=== PATIENT | male | born 1940 | race Caucasian/White ===

== ENCOUNTER 2018-09-12 16:00 | Inpatient (IN) | payer MEDICARE ==
[2018-09-12] MEDS ORDERED: NALOXONE 0.4 MG/ML 1 ML VIAL IV PRN (16:03)
[2018-09-12] MEDS ORDERED: TEMAZEPAM 15 MG CAP PO PRN (16:03)
[2018-09-12] MEDS ORDERED: ALPRAZolam 0.25 MG TAB PO PRN (16:03)
[2018-09-12] MEDS ORDERED: SODIUM CHLORIDE 0.9% 1,000 ML IV SCH (16:15)
[2018-09-12 19:17] VITALS: RESP 18
[2018-09-12 19:18] VITALS: BMI 25.8
[2018-09-12] MEDS ORDERED: FLUTICASONE 50MCG/SPRAY NASAL 16GM EA NOSTRIL PRN (19:58)
[2018-09-12] MEDS ORDERED: KETOROLAC 30 MG/ML 1 ML VIAL IVP PRN (19:59)
[2018-09-12] MEDS: HYDROcodone/APAP 5-325MG 1 EACH TAB PO PRN (20:00)
[2018-09-12 20:08] LABS: Basophils # (A) 0.1 k/uL (0-0.2); Basophils % (A) 1 %; Eosinophils # (A) 0.1 k/uL (0-0.7); Eosinophils % (A) 1 %; HCT 48.2 % (39.0-53.0); HGB 15.3 gm/dL (13.0-17.5); Lymphocytes # (A) 1.3 k/uL (1.0-4.8); Lymphocytes % (A) 18 %; MCH 30.4 pg (25.0-35.0); MCHC 31.6 g/dL (31.0-37.0); MCV 96.3 fL (80.0-100.0); Mean Platelet Volume 6.5; Monocytes # (A) 0.5 k/uL (0-1.0); Monocytes % (A) 7 %; Neutrophils # (A) 5.3 k/uL (1.3-7.7); Neutrophils % (A) 71 %; Platelet Count 265 k/uL (150-450); RBC 5.01 m/uL (4.30-5.90); RDW 13.1 % (11.5-15.5); WBC 7.5 k/uL (3.8-10.6)
[2018-09-12 20:19] LABS: Albumin 4.3 g/dL (3.5-5.0); Potassium 4.1 mmol/L (3.5-5.1); Total Bilirubin 0.6 mg/dL (0.2-1.3); Total Protein 6.8 g/dL (6.3-8.2)
[2018-09-12] MEDS: IOPAMIDOL-300 CONTRAST 30 ML VIAL (ORAL USE) PO PRN ×2 (20:25→21:32)
[2018-09-12] MEDS: methylPREDNISolone SOD SUCCI 125 MG/2 ML VIAL IV SCH (20:57)
[2018-09-12] MEDS ORDERED: ATORVASTATIN 20 MG TAB PO SCH (21:00)
[2018-09-12] MEDS: HYDROmorphone 0.5 MG/0.5 ML SYRINGE IVP PRN (21:01)
[2018-09-12 21:06] LABS: Glucose,Whole Blood 86 mg/dL (75-99)
--- NOTE | 2018-09-12 22:15 | HP ---
HISTORY AND PHYSICAL CHIEF COMPLAINT: Back pain. HISTORY OF PRESENT ILLNESS: This 77-year-old gentleman with a past medical history of Parkinson's, history of Kramer's esophagus, anxiety, panic disorder, being followed by Dr. Oreilly in the outpatient setting was complaining of back pain. Patient apparently had back pain about 2 years ago which improved with conservative line of management. MRA done at that time did not show any acute abnormality, but currently the patient having 2 weeks back pain which is felt in the back and radiates to the front and with muscle spasms and weakness. The also reported the patient is dragging himself. The patient was given outpatient pain medication because of lack of improvement. Dr. Oreilly performed a MRI at the [facility] which showed a pathological compression fracture of the L2 vertebral body with up to 50% loss and some retropulsion of the posterior vertebral body by 6.5 mm resulting in severe canal stenosis on the right. There is also an abnormal signal intensity noted within the vertebral body and suspicious of metastatic disease according to the MRI scan. Other lesions around T1 and T2 were also suspected. Multilevel DJD was also noted with apparent lymphadenopathy also noted the possible lymphoma is also considered and Dr. Oreilly discussed the case at length with me over the phone and the patient directly transferred to [facility] for further evaluation and treatment. There is no history of any fever, rigors or chills. No history of headache, loss of consciousness, seizures. No history of significant weight loss either. PAST MEDICAL HISTORY: 1. History of Parkinson's. 2. History of Kramer's esophagus. 3. Anxiety. 4. Panic disorder. 5. Nicotine dependence. MEDICATIONS: 1. Prednisone taper. 2. Lamictal 100 mg p.o. daily. 3. Klonopin 0.5 mg t.i.d. 4. Simvastatin 40 mg q.h.s. 5. Omeprazole 20 mg p.o. daily. 6. Namenda 10 mg p.o. b.i.d. 7. Mobic 7.5 mg daily p.r.n. 8. Flonase 2 sprays daily p.r.n. 9. Lexapro 40 mg. 10.Aricept 10 mg p.o. daily. 11.Carbidopa levodopa. 12.Sinemet ER 1 tablet p.o. t.i.d. ALLERGIES: None. FAMILY HISTORY: History of cancer in the family. SOCIAL HISTORY: Previous history of smoking, no history of current smoking or alcohol intake. REVIEW OF SYSTEMS: ENT: Diminished vision. Diminished hearing. CARDIOVASCULAR: No angina or palpitations. RESPIRATIONS: No cough or hemoptysis. GI no nausea or vomiting. no dysuria or hematuria. NERVOUS SYSTEM: As mentioned earlier. ALLERGY/IMMUNOLOGY: No asthma or hayfever. MUSCULOSKELETAL as mentioned earlier. HEMATOLOGY/ONCOLOGY: No history of anemia. ENDOCRINE: ENDOCRINE: No history of diabetes or hypothyroidism. CONSTITUTIONAL: As mentioned earlier. DERMATOLOGY: Negative. RHEUMATOLOGY negative. PSYCHIATRY as mentioned earlier. PHYSICAL EXAM: Patient is alert and oriented times three. Pulse 71, blood pressure 161/89, respiration 18, temperature 97.5, pulse ox 94% on room air. HEENT: Conjunctivae normal. Oral mucosa moist. NECK is no jugular venous distention. No carotid bruit. No lymph node enlargement. Cardiovascular system: S1, S2 muffled. No S3, no S4. RESPIRATORY: Breath sounds diminished in the bases. No rhonchi. No crackles. ABDOMEN: Soft, obese, nontender. No mass palpable. LEGS: No edema. No swelling. NERVOUS SYSTEM: Higher functions as mentioned earlier. Otherwise moves all 4 limbs. Tone is increased. Diffuse tremors suggestive of Parkinsonian tremors also present. Otherwise, some weakness and wasting of the both lower limbs also present. The leg movements are painful. Straight leg raise test is positive. Turning in the bed is painful for the patient with radiating pain over both the front and back of the leg. Gait cannot be tested. LYMPHATICS: No lymph nodes palpable in the neck, axillae or groin. JOINTS: No active deforming arthropathy otherwise as mentioned earlier. LABS: Pending at this time. MRI personally reviewed by me as mentioned earlier. ASSESSMENT: 1. Severe low back pain and L2 compression fractures with possible , rule out metastatic disease, possible degenerative joint disease. 2. Thoracic vertebral lesions, rule out metastatic lesions. 3. Retroperitoneal lymphadenopathy, rule out lymphoma. 4. Parkinson's. 5. Gait dysfunction because of severe pain and failure of outpatient treatment. 6. History of Kramer's esophagus. 7. Appendectomy. 8. Anxiety panic disorder. 9. Remote history of nicotine dependence. 10.FULL CODE. RECOMMENDATIONS AND DISCUSSION: In this 77-year-old gentleman who presented with multiple complex medical issues, at this time, I recommend to continue current medications. Exact etiology of the back pain is unknown at this time. I recommend symptomatic treatment with IV pain medications. I would also recommend a bone scan and CT scan of the chest, abdomen and pelvis also to evaluate for any possible primary foci of metastasis. Basic labs will be ordered and orthopedic surgeon, Dr. Deng and as well as Dr. Wu from Oncology also will be consulted. The overall prognosis extremely guarded. DVT prophylaxis. Incentive spirometry. Discussed with the patient's family at length. Understands and agrees. Further recommendations to follow. A copy of dictation being forwarded to Dr. Oreilly who is the primary physician. [id number] / IJN: [id number] / TANNA
--- NOTE | 2018-09-12 22:16 | XR ---
EXAMINATION: XR chest 1V portable DATE AND TIME: 09/12/2018 7:42 PM CLINICAL INDICATION: PHH; copd TECHNIQUE: AP upright portable COMPARISON: None FINDINGS: The pulmonary vasculature is mildly silhouetted by a fine reticular pattern of increased attenuation. This is a subtle finding but could correlate with a clinical diagnosis of mildly elevated left heart pressures. Moderately enlarged cardiac silhouette noted. The pleural spaces are negative. No acute skeletal or soft tissue findings. IMPRESSION: No definite acute radiographic process.
[2018-09-12] MEDS: INSULIN ASPART (NovoLOG) 100 UNIT/ML VIAL SQ SCH (22:26)
[2018-09-12] MEDS: clonazePAM 0.5 MG TAB PO SCH (22:39)
[2018-09-12] MEDS: MEMANTINE 10 MG TAB PO SCH (22:39)
[2018-09-12] MEDS: CARBIDOPA-LEVODOPA ER 50-200MG 1 EACH TABLET.ER PO SCH (22:39)
[2018-09-12] MEDS: HEPARIN SODIUM,PORCINE 5,000 UNIT/ML 1 ML VIAL SQ SCH (22:41)
[2018-09-13] LABS: Appearance,Urine Clear (Clear); Bilirubin,Urine Negative (Negative); Blood,Urine Negative (Negative); Color,Urine Light Yellow; Glucose,Urine (UA) Negative (Negative); Ketones,Urine Negative (Negative); Leukocyte Esterase,Urine Negative (Negative); Nitrite,Urine Negative (Negative); Protein,Urine Negative (Negative); Specific Gravity,Urine 1.009 (1.001-1.035); Urobilinogen,Urine <2.0 mg/dL (<2.0)
[2018-09-13] MEDS: methylPREDNISolone SOD SUCCI 125 MG/2 ML VIAL IV SCH ×3 (00:28→13:50)
[2018-09-13] MEDS: HYDROcodone/APAP 5-325MG 1 EACH TAB PO PRN (06:02)
[2018-09-13 06:11] VITALS: BP 123/77; PULSE 68; TEMP 97.4
[2018-09-13 07:00] LABS: Glucose,Whole Blood 131 mg/dL (75-99)
[2018-09-13] MEDS ORDERED: PANTOPRAZOLE 40 MG TABLET PO SCH (07:30)
[2018-09-13] MEDS: INSULIN ASPART (NovoLOG) 100 UNIT/ML VIAL SQ SCH ×2 (08:03→13:55)
[2018-09-13] MEDS: HEPARIN SODIUM,PORCINE 5,000 UNIT/ML 1 ML VIAL SQ SCH (08:04)
[2018-09-13] MEDS: clonazePAM 0.5 MG TAB PO SCH (08:05)
[2018-09-13] MEDS: CARBIDOPA-LEVODOPA ER 50-200MG 1 EACH TABLET.ER PO SCH (08:05)
[2018-09-13] MEDS: MEMANTINE 10 MG TAB PO SCH (08:05)
--- NOTE | 2018-09-13 08:09 | CT ---
EXAMINATION TYPE: CT brain wo con DATE OF EXAM: 09/12/2018 COMPARISON: 02/18/2015 HISTORY: mets CT DLP: [address] of the brain was performed. The ventricles, basal cisterns and sulci overlying the cerebral convexities demonstrate mild enlargem ent. There is no evidence for intracranial hemorrhage or sulcal effacement. There is decreased attenuation about the periventricular white matter and deep white matter of both c erebral hemispheres, compatible with chronic small vessel ischemia. Differential diagnosis does inclu de demyelination. No mass effects are seen.No midline shift. Osseous calvarium is intact. If symptoms persist consider MRI. IMPRESSION: 1. Age related atrophic and chronic small vessel ischemic change without acute intracranial process s een at this time.
--- NOTE | 2018-09-13 08:28 | CT ---
EXAMINATION TYPE: CT ChestAbdPelvis wo con DATE OF EXAM: 09/12/2018 COMPARISON: None HISTORY: mets, c/o back pain CT DLP: 858mGycm Unenhanced CT of the Chest, Abdomen and Pelvis Unenhanced CT of the chest ,abdomen and pelvis is performed. The lack of intravenous contrast limits evaluation of the solid and hollow viscera. Oral contrast: Yes CT Chest: LUNGS: Innumerable small pulmonary nodules are seen within the mid and upper lung zones measuring up to 6 or 7 mm. No pulmonary mass is visible. Mild left basilar atelectasis. No pleural effusion identi fied. MEDIASTINUM: Thoracic aorta is of normal caliber. The heart is not enlarged. No evidence for media stinal mass or adenopathy. HILAR STRUCTURES: No evidence for mass. No hilar adenopathy is appreciated. OTHER: No significant abnormality. CONTRAST CT ABDOMEN AND PELVIS: LIVER/GB: No calcified gallstones. No space occupying hepatic lesion. Biliary tree is of normal ca liber. PANCREAS: No inflammation. No distinct mass. SPLEEN: No splenic enlargement. No lesion seen. ADRENALS: No nodule. No thickening. KIDNEYS/BLADDER: No hydronephrosis. No nephrolithiasis. No distinct solid renal mass. 2.4 cm right renal cystic lesion. BOWEL: Normal appendix. Normal bowel caliber. No inflammation. GENITAL ORGANS: No gross abnormality. LYMPH NODES: No greater than 1cm abdominal or pelvic lymph nodes are appreciated. AORTA: No significant abnormality. OSSEOUS STRUCTURES: There is lytic lesion involving the mid body of L2 with bony retropulsion noted m easuring 9.6 mm and resultant severe central stenosis. Additional lesions are noted at the L1 level w hich is somewhat blastic in appearance as well as the superior endplate of T12 right L3 transverse pr ocess lesion noted. Small blastic lesion noted left S1 segment early lesion mid sacrum on the right i s difficult to exclude OTHER: No significant additional abnormality is seen. IMPRESSION: 1. Osseous metastases noted as discussed above greatest at L2 where there is bony retropulsion of 9.6 mm and results in severe central stenosis. 2. Innumerable smaller nodules mid and upper lung zones bilaterally may reflect metastatic nodules. A [place] critical message alert has been initiated for Lilly Damon MD via the [employer] [facility] on 09/13/2018 8:25 AM. This message alert has been sent to Lilly Damon MD via the preferences provided by the clinician for the receipt of Radiology Critical Findings. Message ID [id number].
[2018-09-13 08:58] LABS: Basophils % (A) 0 %; Eosinophils % (A) 0 %; HCT 48.8 % (39.0-53.0); HGB 15.8 gm/dL (13.0-17.5); Lymphocytes # (A) 0.8 k/uL (1.0-4.8); Lymphocytes % (A) 12 %; MCH 31.3 pg (25.0-35.0); MCHC 32.5 g/dL (31.0-37.0); MCV 96.3 fL (80.0-100.0); Mean Platelet Volume 7.2; Monocytes # (A) 0.1 k/uL (0-1.0); Monocytes % (A) 1 %; Neutrophils # (A) 5.4 k/uL (1.3-7.7); Neutrophils % (A) 86 %; Platelet Count 258 k/uL (150-450); RBC 5.07 m/uL (4.30-5.90); RDW 14.1 % (11.5-15.5); WBC 6.3 k/uL (3.8-10.6)
[2018-09-13] MEDS ORDERED: lamoTRIgine 100 MG TAB PO SCH (09:00)
[2018-09-13] MEDS ORDERED: DONEPEZIL 10 MG TAB PO SCH (09:00)
[2018-09-13] MEDS ORDERED: NON-FORMULARY DRUG (Omeprazole [Omeprazole] 20 MG) PO SCH (09:00)
[2018-09-13] MEDS ORDERED: ESCITALOPRAM 20 MG TAB PO SCH (09:00)
[2018-09-13 09:09] LABS: Calcium 9.3 mg/dL (8.4-10.2); Potassium 4.6 mmol/L (3.5-5.1)
--- NOTE | 2018-09-13 10:17 | P.CONS ---
History of Present Illness - Reason for Consult Consult date: 09/13/18 bone lesions, lung nodules Requesting physician: Lilly Damon - Chief Complaint back pain, leg numbness - History of Present Illness Mr. Robles is a very pleasant 77-year-old male who in the last 2 months has had increasing back pain, this is associated with numbness in the legs, he has "stumbled" a few times per his , no falls, incontinence of bowel or bladder. Over the last 2 weeks ago the pain is become more intense, to the point he can't move, it wraps around his hips, sometimes it will be more intense on one side than the other. Patient recently had an MRI (discs are available in patient's chart). This was positive for multiple bony lesions in the lumbar spine area. Patient was contacted by [facility] and told to come to the emergency department. On admission Attending ordered CT CAP, looking for primary, pulmonary nodules bilaterally were identified, there was a right renal cystic lesion as well as, otherwise no abnormalities. Patient's CBC and CMP were unremarkable other than an absolute lymphocyte count slightly low at 0.8 and a slightly elevated alk phos of 157. Pt denied unintnetional weight loss, shortness of breath, cough, other pain. He has no personal history of cancer, he has a remote history of smoking greater than 40 years ago. PSA checked in the past, last one was about 5 years ago. Review of Systems 14 point review of systems is as stated in HPI Past Medical History Past Medical History: Neurologic Disorder Additional Past Medical History / Comment(s): Parkinsons, Barretts Esophagus, beginning of dementia per , using walker lately per History of Any Multi-Drug Resistant Organisms: None Reported Past Surgical History: Appendectomy Past Anesthesia/Blood Transfusion Reactions: No Reported Reaction Past Psychological History: Anxiety, Panic Disorder Smoking Status: Former smoker Past Alcohol Use History: None Reported Past Drug Use History: None Reported - Past Family History Father Family Medical History: Cancer Medications and Allergies Home Medications Medication Instructions Recorded Confirmed Type Carbidopa-Levodopa ER 50-200Mg 1 tab PO TID 09/12/18 09/12/18 History [Sinemet ER 50-200] Donepezil [Aricept] 10 mg PO DAILY 09/12/18 09/12/18 History Escitalopram [Lexapro] 40 mg PO DAILY 09/12/18 09/12/18 History Fluticasone Nasal [place]man [Flonase 2 spr EA NOSTRIL DAILY PRN 09/12/18 09/12/18 History Nasal [place]man] Meloxicam [Mobic] 7.5 mg PO DAILY PRN 09/12/18 09/12/18 History Memantine [Namenda] 10 mg PO BID 09/12/18 09/12/18 History Omeprazole 20 mg PO DAILY 09/12/18 09/12/18 History Simvastatin 40 mg PO HS 09/12/18 09/12/18 History clonazePAM [KlonoPIN] 0.5 mg PO TID 09/12/18 09/12/18 History lamoTRIgine [LaMICtal] 100 mg PO DAILY 09/12/18 09/12/18 History predniSONE See Taper PO DAILY 09/12/18 09/12/18 History Allergies Allergy/AdvReac Type Severity Reaction Status Date / Time No Known Allergies Allergy Verified 09/12/18 19:48 Physical Exam Vitals: Vital Signs Temp Pulse Resp BP Pulse Ox 09/13/18 06:10 97.4 F L 68 18 123/77 93 L 09/12/18 19:16 97.5 F L 71 18 161/89 95 Intake and Output 09/12/18 09/13/18 09/13/18 22:59 06:59 14:59 Intake Total 40 160 Output Total 350 Balance -310 160 Intake: Intake, IV Titration 40 160 Amount Sodium Chloride 0.9% 1, 40 160 000 ml @ 20 mls/hr IV . Q24H [facility] Rx#:[id number] Output: Urine 350 Other: Voiding Method Urinal Weight 78.5 kg - Constitutional General appearance: average body habitus, cooperative, no acute distress - EENT Eyes: anicteric sclerae, EOMI, normal appearance ENT: hearing grossly normal, normal oropharynx - Neck Neck: no lymphadenopathy - Respiratory Respiratory: bilateral: CTA - Cardiovascular Rhythm: regular Heart sounds: normal: S1, S2 Abnormal Heart Sounds: no systolic murmur, no diastolic murmur, no rub, no S3 Gallop, no S4 Gallop, no click, no other leg Peripheral Edema: bilateral: None - Gastrointestinal General gastrointestinal: no absent bowel sounds, no decreased bowel sounds, distended, no hepatomegaly, no hyperactive bowel sounds, normal bowel sounds, no organomegaly, no rigid, no scaphoid, soft, no splenomegaly, no tenderness, no umbilical hernia, no ventral hernia - Neurologic Neurologic: CNII-XII intact - Musculoskeletal Bilateral lower extremity strength is maintained, patient does have some difficulty discriminating soft touch on the bilateral thighs and in the groin area - Psychiatric repeats questions, anxiety with regards to workup and differential diagnosis Psychiatric: A&O x's 3, intact judgment & insight Results CBC & Chem 7: 09/13/18 08:19 09/13/18 08:19 Labs: Abnormal Lab Results - Last 24 Hours (Table) 09/12/18 09/13/18 09/13/18 Range/Units 19:59 06:57 08:19 Lymphocytes # 0.8 L (1.0-4.8) k/uL BUN 22 H (9-20) mg/dL Glucose 72 L (74-99) mg/dL POC Glucose (mg/dL) 131 H (75-99) mg/dL ALT 6 L (21-72) U/L Alkaline Phosphatase 157 H (38-126) U/L 09/13/18 Range/Units 08:19 Lymphocytes # (1.0-4.8) k/uL BUN 22 H (9-20) mg/dL Glucose 139 H (74-99) mg/dL POC Glucose (mg/dL) (75-99) mg/dL ALT (21-72) U/L Alkaline Phosphatase (38-126) U/L Chest x-ray: report reviewed CT scan - abdomen: report reviewed CT scan - chest: report reviewed CT Scan - head: report reviewed CT scan - pelvis: report reviewed Assessment and Plan (1) Bone lesion Current Visit: Yes Status: Acute Priority: High Code(s): M89.9 - DISORDER OF BONE, UNSPECIFIED SNOMED Code(s): 72238620 (2) Indeterminate pulmonary nodules Current Visit: Yes Status: Acute Priority: High Code(s): R91.8 - OTHER NONSPECIFIC ABNORMAL FINDING OF LUNG FIELD SNOMED Code(s): 261858095 (3) Intractable pain Current Visit: Yes Status: Acute Priority: High Code(s): R52 - PAIN, UNSPECIFIED SNOMED Code(s): 68392654 (4) Numbness and tingling of both lower extremities Current Visit: Yes Status: Acute Priority: High Code(s): R20.0 - ANESTHESIA OF SKIN; R20.2 - PARESTHESIA OF SKIN SNOMED Code(s): 332120467 Plan: Dr. Wu reviewed the results of the CT CAP and brain. The pulmonary nodules are indeterminate and nodules are not an amenable target for biopsy. Pending evaluation by Orthopedic Spine to determine if there is spinal cord compression requiring Neurosurgical intervention. In this case, plan would be for transfer to tertiary facility for Neurosurgery intervention. If spinal findings are not felt to be urgent/impending cord compression then we will anticipate bone biopsy for tissue diagnosis. All of the patient and his family's questions were answered to the best of our ability. Dexamethasone 6 mg every 8 hours. PPI daily. Continue pain management, patient's pain is adequate at this time. Bowel regimen for prevention of narcotic-induced constipation. Bed rest with bedside commode for bowel movements. DVT prophylaxis is already ordered. Doctor attests: I performed a history and physical examination of this patient with dictator, I have developed impression and plan of care. I agree with dictators note, documented as a scribe.
[2018-09-13] MEDS ORDERED: SENNOSIDES-DOCUSATE SODIUM 1 EACH TAB PO SCH (10:30)
[2018-09-13] MEDS ORDERED: DEXAMETHASONE 2 MG TAB PO SCH (11:00)
[2018-09-13 11:10] LABS: Glucose,Whole Blood 168 mg/dL (75-99)
--- NOTE | 2018-09-13 12:13 | NM ---
EXAMINATION TYPE: NM bone scan whole body DATE OF EXAM: 09/13/2018 COMPARISON: CT 09/12/2018 HISTORY: Metastatic disease Delayed whole-body scanning was performed following the injection of 24.4 mCi Tc 99m MDP. Images acq uired 4 hours post injection. FINDINGS: There are multiple foci of abnormal radio pharmaceutical uptake including bilateral ribs, multiple fo ci within the thoracic and lumbar spine, pelvis, right and possibly left scapula, possibly left acrom ion, and approximately 20-30 lesions present. Soft tissue uptake thought to be normal. Arthropathy li hernando present in the knees, shoulders. IMPRESSION: Metastatic disease.
[2018-09-13] MEDS ORDERED: LORazepam 0.5 MG TAB PO PRN (12:42)
[2018-09-13] MEDS: HYDROmorphone 0.5 MG/0.5 ML SYRINGE IVP PRN ×2 (14:02→17:15)
--- NOTE | 2018-09-13 17:22 | P.CNOR ---
History of Present Illness - [facility] Consult date: 09/13/18 Requesting physician: Lilly Damon Consult reason: low back pain, other (Lytic lesion L2 vertebral body with bony retropulsion resulting in severe spinal canal stenosis) History of present illness: Patient is a very pleasant 77-year-old male who is seen and examined at bedside with his and daughter present for intractable low back pain and lower extremity neuropathy with weakness. Patient states for approximately 2 weeks he has pain that radiates from the lumbar spine, over the lateral hips, pain over the right anterior thigh. He feels generalized weakness and numbness in bilateral lower extremities. He has also had increased difficulty with urination and is experiencing retention. His symptoms have been worsening daily over the past 2 weeks. He denies any injuries. He sought further evaluation with his primary care provider. He has been undergoing treatment without significant improvement of his symptoms. A lumbar MRI was ordered at [facility]. Following the completion and results of this imaging, the patient was contacted and told he should present to [facility] for further evaluation. Upon presentation, consultation was placed with us in orthopedic spine for further evaluation. Multiple imaging modalities have been taken dur ing his presentation to the hospital including CT of the brain, CT chest abdomen and pelvis, and nuclear medicine bone scan. He has been seen and examined by oncology who is recommending evaluation from an orthopedic spine standpoint to discuss treatment options. Patient is aware of pulmonary nodules but is unaware of any other imaging results or medical diagnoses. Patient did have exacerbation of low back pain and lower extremity radiculopathy, years ago without significant findings and improved with conservative treatment. I am told he underwent an MRI at that time without significant findings. Past Medical History Past Medical History: Neurologic Disorder Additional Past Medical History / Comment(s): Parkinsons, Barretts Esophagus, beginning of dementia per , using walker lately per History of Any Multi-Drug Resistant Organisms: None Reported Past Surgical History: Appendectomy Past Anesthesia/Blood Transfusion Reactions: No Reported Reaction Past Psychological History: Anxiety, Panic Disorder Smoking Status: Former smoker Past Alcohol Use History: None Reported Past Drug Use History: None Reported - Past Family History Father Family Medical History: Cancer Medications and Allergies Home Medications Medication Instructions Recorded Confirmed Type Carbidopa-Levodopa ER 50-200Mg 1 tab PO TID 09/12/18 09/12/18 History [Sinemet ER 50-200] Donepezil [Aricept] 10 mg PO DAILY 09/12/18 09/12/18 History Escitalopram [Lexapro] 40 mg PO DAILY 09/12/18 09/12/18 History Fluticasone Nasal [place] [Flonase 2 spr EA NOSTRIL DAILY PRN 09/12/18 09/12/18 History Nasal [place]] Meloxicam [Mobic] 7.5 mg PO DAILY PRN 09/12/18 09/12/18 History Memantine [Namenda] 10 mg PO BID 09/12/18 09/12/18 History Omeprazole 20 mg PO DAILY 09/12/18 09/12/18 History Simvastatin 40 mg PO HS 09/12/18 09/12/18 History clonazePAM [KlonoPIN] 0.5 mg PO TID 09/12/18 09/12/18 History lamoTRIgine [LaMICtal] 100 mg PO DAILY 09/12/18 09/12/18 History predniSONE See Taper PO DAILY 09/12/18 09/12/18 History Allergies Allergy/AdvReac Type Severity Reaction Status Date / Time No Known Allergies Allergy Verified 09/12/18 19:48 Physical Examination Physical exam: Patient is awake, alert, and oriented 3 Vital signs stable Good chest excursion with deep inspiration and expiration Examination of lumbar spine reveals skin is intact with no abrasions, lacerations, or bruises; no erythema, purulence or signs of infection Pain with palpation of the lumbar spine along the midline at the mid to lower lumbar spine Dorsiflexion, plantarflexion, and extensor hallucis longus positive sustained bilaterally Lower extremity strength 5/5 bilaterally Patient is able to move legs independently without significant difficulty while in bed Straight leg test negative bilateral lower extremities No signs or symptoms of DVT; no calf pain No pain with internal and external rotation of the hips bilaterally Neurovascularly intact Results Pertinent studies: Nuclear medicine whole-body bone scan taken on 09/13/2018: Metastatic disease of multiple foci of abnormal radiotracer uptake including the bilateral ribs, multiple foci within the thoracic and lumbar spine, pelvis, right and possibly left scapula, possibly left acromion, and approximately 20-[address] of the chest, abdomen, pelvis without contrast taken on 09/12/2018: Lytic lesion involving the mid vertebral L2 body with bony retropulsion resulting in severe spinal canal stenosis; additional lesions identified at T12, L1, and L3; small lesion noted left S1 segment and early mid sacrum lesion difficult to exclude; innumerable smaller nodules in the mid and upper lung sounds bilaterally which may reflect metastatic nodules CT the brain without contrast taken on 09/12/2018: Age-related atrophic and chronic small vessel ischemic changes without acute intracranial process seen at this time - Labs Labs: Abnormal Lab Results - Last 24 Hours (Table) 09/12/18 09/13/18 09/13/18 Range/Units 19:59 06:57 08:19 Lymphocytes # 0.8 L (1.0-4.8) k/uL BUN 22 H (9-20) mg/dL Glucose 72 L (74-99) mg/dL POC Glucose (mg/dL) 131 H (75-99) mg/dL ALT 6 L (21-72) U/L Alkaline Phosphatase 157 H (38-126) U/L 09/13/18 09/13/18 Range/Units 08:19 11:05 Lymphocytes # (1.0-4.8) k/uL BUN 22 H (9-20) mg/dL Glucose 139 H (74-99) mg/dL POC Glucose (mg/dL) 168 H (75-99) mg/dL ALT (21-72) U/L Alkaline Phosphatase (38-126) U/L H & H 09/12/18 09/13/18 Range/Units 19:59 08:19 Hgb 15.3 15.8 (13.0-17.5) gm/dL Hct 48.2 48.8 (39.0-53.0) % Result Diagrams: 09/13/18 08:19 09/13/18 08:19 Assessment and Plan Assessment: Assessment: Intractable low back pain Lytic lesion L2 vertebral body with bony retropulsion resulting in severe spinal canal stenosis Right lower extremity radiculopathy Lower extremity numbness Generalized weakness bilateral lower extremities Urinary retention Multiple lesions identified in the thoracic and lumbar spine including T12, L1, and L3 Metastatic disease of multiple foci of abnormal radiotracer uptake including the bilateral ribs, multiple foci within the thoracic and lumbar spine, pelvis, right and possibly left scapula, possibly left acromion Metastatic disease of unknown origin Multiple pulmonary nodules (1) Metastatic disease Current Visit: Yes Status: Acute Code(s): C79.9 - SECONDARY MALIGNANT NEOPLASM OF UNSPECIFIED SITE SNOMED Code(s): 907645262 (2) Generalized weakness Current Visit: Yes Status: Acute Code(s): R53.1 - WEAKNESS SNOMED Code(s): 71009111 (3) Bone lesion Current Visit: Yes Status: Acute Priority: High Code(s): M89.9 - DISORDER OF BONE, UNSPECIFIED SNOMED Code(s): 52981398 (4) Indeterminate pulmonary nodules Current Visit: Yes Status: Acute Priority: High Code(s): R91.8 - OTHER NONSPECIFIC ABNORMAL FINDING OF LUNG FIELD SNOMED Code(s): 644502298 (5) Intractable pain Current Visit: Yes Status: Acute Priority: High Code(s): R52 - PAIN, UNSPECIFIED SNOMED Code(s): 58097031 (6) Numbness and tingling of both lower extremities Current Visit: Yes Status: Acute Priority: High Code(s): R20.0 - ANEST HESIA OF SKIN; R20.2 - PARESTHESIA OF SKIN SNOMED Code(s): 749192675 (7) Spinal stenosis Current Visit: Yes Status: Acute Code(s): M48.00 - SPINAL STENOSIS, SITE UNSPECIFIED SNOMED Code(s): 05620773 (8) Spinal cord compression Current Visit: No Status: Acute Code(s): G95.20 - UNSPECIFIED CORD COMPRESSION SNOMED Code(s): 10382384 Plan: Plan: Patient has been discussed in detail with Dr. Shukri Deng. After a long discussion with the patient, his , and his daughter along with reviewing of imaging, further discussion with him, and physical examination of the patient, we recommend the patient being transferred to a tertiary facility for further evaluation and possible treatment. He has evidence of multiple lytic lesions of his thoracic and lumbar spines including lytic lesion at the L2 vertebral body with bony retropulsion resulting in severe spinal canal stenosis. Nuclear medicine hold body bone scan shows evidence of metastatic disease of multiple foci of abnormal radiotracer uptake including the bilateral ribs, multiple foci within the thoracic and lumbar spine, pelvis, right and possibly left scapula, possibly left acromion. We do not have a medical diagnosis as to the cause of his multiple lytic lesions. He has been found to have multiple pulmonary nodules. He has been seen by oncology. We discussed possible treatment options. We discussed his severe spinal canal stenosis due to bony retropulsion and the fact that he may need surgical intervention with a corpectomy from an anterior approach or even possible removal of epidural mass if present. He is experiencing new onset right lower extremity radiculopathy, increased urinary retention, and weakness in bilateral lower extremities, which correlates with his severe spinal canal stenosis. We discussed this type of surgical intervention would be best performed at a tertiary facility. After discussion with his family, the patient feels as good plan of care. The patient will likel y undergo further evaluation from an oncology standpoint for a specific diagnoses in relation to his metastatic disease while at the tertiary facility. Patient has been discussed with case management and nursing. Medicine will plan to begin the process of transferring the patient to a tertiary facility. We discussed we will have the patient follow up on a as needed basis as he will plan to follow with the medical providers at the tertiary facility following discharge from that facility. Patient and his family feels is a good plan of care. Time with Patient: Greater than 30 (Including obtaining history, physical examination, reviewing of imaging, and dictation.)
--- NOTE | 2018-09-13 18:34 | DS ---
DISCHARGE SUMMARY DATE OF SERVICE: 09/13/2018 FINAL DIAGNOSES: 1. Severe low back pain and compression fractures of L2, possibly metastasis with possible central canal stenosis. 2. Thoracic vertebral lesions and diffuse osseous lesions on the bone scan. 3. Retroperitoneal lymphadenopathy. Rule out lymphoma. 4. Parkinson's. 5. Gait dysfunction and weakness of the lower limbs and severe pain with failure of outpatient treatment. 6. History of Kramer's esophagus. 7. Appendectomy. 8. Anxiety, panic disorder. 9. Remote history of nicotine dependence. 10.FULL CODE. DISCHARGE DISPOSITION: The patient will be discharged in stable condition with guarded prognosis. Total time taken 35 minutes. Patient will be transferred to [facility] Neurosurgery Department. HISTORY OF PRESENT ILLNESS: This 77-year-old gentleman with a past history of multiple medical problems, being followed by Dr. Oreilly in the outpatient setting, was admitted with back pain and difficulty in walking. The evaluation MRI showed L2 compression fracture and possibly some retropulsion and central canal stenosis also. Other evaluations include bone scan that showed possible diffuse metastases and CT scan of the chest, abdomen and pelvis that showed retroperitoneal lymphadenopathy. Hematology/Oncology was consulted. Orthopedics, Dr. Hernandez, recommended referral to a tertiary care center. On exam, vitals are stable. CARDIOVASCULAR SYSTEM: S1, S2 muffled. ABDOMEN: Soft. NERVOUS SYSTEM: Mild diffuse weakness and wasting of the lower legs. I discussed the case at length with the [facility] neurosurgery department, Dr. Linda, and the patient will be transferred to [facility] in stable condition with guarded prognosis. Discussed with the family at length. Please refer to the medication reconciliation for list of medications. MMODL / IJN: [id number] /
== END 2018-09-13 17:30 | disposition short-term general hospital (02) | DRG 543 ==
LOC: 3NMEDONC 18:32
PROVIDERS: ADMIT Hospitalist; ATTEND Hospitalist
DX: C79.51 Secondary malignant neoplasm of bone (principal); M48.56XA Collapsed vertebra, not elsewhere classified, lumbar region, initial encounter for fracture; G95.20 Unspecified cord compression; M48.061 Spinal stenosis, lumbar region without neurogenic claudication; F02.80 Dementia in other diseases classified elsewhere, unspecified severity, without behavioral disturbance, psychotic disturbance, mood disturbance, and anxiety; F41.0 Panic disorder [episodic paroxysmal anxiety]; M54.10 Radiculopathy, site unspecified; R26.2 Difficulty in walking, not elsewhere classified; G20 Parkinson's disease; K22.70 Barrett's esophagus without dysplasia; Z79.1 Long term (current) use of non-steroidal anti-inflammatories (NSAID); Z80.9 Family history of malignant neoplasm, unspecified; Z87.891 Personal history of nicotine dependence; Z79.899 Other long term (current) drug therapy; Z90.49 Acquired absence of other specified parts of digestive tract
CPT/HCPCS: 70450; 71045; 71250; 74176; 78306; 80048; 80053; 81003; 84153; 85025; 93005

== ENCOUNTER 2018-10-25 07:44 | Day surgery (SDC) | payer MEDICARE ==
[2018-10-24 08:43] VITALS: BMI 26.9
[~2018-10-25 07:44] MED LIST: LACTATED RINGERS 1,000 ML IV SCH
[2018-10-25] MEDS ORDERED: LACTATED RINGERS 1,000 ML IV ONE (08:02)
[2018-10-25 08:12] VITALS: TEMP 97.6
[2018-10-25] MEDS ORDERED: PROPOFOL 10 MG/ML 20 ML VIAL IV ONE (08:19)
--- NOTE | 2018-10-25 08:32 | P.GSHP ---
History of Present Illness H&P Date: 10/25/18 Chief Complaint: Metastatic cancer Patient here today for upper endoscopy. Patient is having progressive back pain and was found to have a pathologic fracture. 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 Here today for upper endoscopy to evaluate for source of malignancy. Recent CAT scan in September showed multiple lung nodules thickening of the distal esophagus and retroperitoneal adenopathies. History of previous EGD 2012. Was found to have Kramer's mucosa at that time. No abdominal pain. No significant GI symptoms. Past Medical History Past Medical History: Cancer, Neurologic Disorder Additional Past Medical History / Comment(s): Parkinsons, Barretts Esophagus, beginning of dementia per , using walker lately, esophageal cancer with bone metastasis, seasonal allergies History of Any Multi-Drug Resistant Organisms: None Reported Past Surgical History: Appendectomy, Back Surgery Additional Past Surgical History / Comment(s): back surgery L1-L2 with 5 screws and 2 bars Past Anesthesia/Blood Transfusion Reactions: Previous Problems w/ Anesthesia Additional Past Anesthesia/Blood Transfusion Reaction / Comment(s): slow to come out of anesthesia Past Psychological History: Anxiety, Panic Disorder Smoking Status: Former smoker Past Alcohol Use History: None Reported Additional Past Alcohol Use History / Comment(s): smoker for 2 years high school quit Past Drug Use History: None Reported - Past Family History Father Family Medical History: Cancer Additional Family Medical History / Comment(s): throat cancer Brother(s) Family Medical History: Cancer Additional Family Medical History / Comment(s): 1 brother-skin cancer. 2nd brother-pancreatic cancer Medications and Allergies Home Medications Medication Instructions Recorded Confirmed Type Carbidopa-Levodopa ER 50-200Mg 1 tab PO TID 09/12/18 10/25/18 History [Sinemet ER 50-200] Donepezil [Aricept] 10 mg PO DAILY 09/12/18 10/25/18 History Escitalopram [Lexapro] 40 mg PO DAILY 09/12/18 10/25/18 History Fluticasone Nasal [place] [Flonase 2 spr EA NOSTRIL DAILY PRN 09/12/18 10/25/18 History Nasal [place]] Memantine [Namenda] 10 mg PO BID 09/12/18 10/25/18 History Omeprazole 20 mg PO DAILY 09/12/18 10/25/18 History Simvastatin 40 mg PO HS 09/12/18 10/25/18 History clonazePAM [KlonoPIN] 0.5 mg PO TID 09/12/18 10/25/18 History lamoTRIgine [LaMICtal] 100 mg PO DAILY 09/12/18 10/25/18 History Allergies Allergy/AdvReac Type Severity Reaction Status Date / Time No Known Allergies Allergy Verified 10/25/18 08:07 Surgical - Exam Vital Signs Temp Pulse Resp BP Pulse Ox 97.6 F 77 14 163/86 95 10/25/18 08:11 10/25/18 08:11 10/25/18 08:11 10/25/18 08:11 10/25/18 08:11 Physical exam: General: Well-developed, well-nourished HEENT: Normocephalic, sclerae nonicteric Abdomen: Nontender, nondistended Extremities: No edema Neuro: Alert and oriented Assessment and Plan (1) Metastatic disease Narrative/Plan: Will proceed with EGD at this time. Current Visit: No Status: Acute Code(s): C79.9 - SECONDARY MALIGNANT NEOPLASM OF UNSPECIFIED SITE SNOMED Code(s): 021780675
--- NOTE | 2018-10-25 08:44 | P.PCN ---
Date of Procedure: 10/25/18 Procedure(s) Performed: Preoperative Dx: Metastatic cancer Postoperative Dx: Esophageal mass, gastric polyps, gastritis Procedure: EGD with Bx Anesthesia: Sedation Endoscopist: Dr. Vincent Specimens: Antrum, gastric polyp, distal esophageal mass Endoscopic Procedure: The patient was on the endoscopy table in the left decubitus position. The Olympus gastroscope was inserted into the oropharynx and passed under direct visualization to the region of the third portion of the duodenum. From that point the scope was slowly withdrawn inspecting all surfaces carefully. There were no neoplastic inflammatory or polypoid lesions throughout the duodenum. The pylorus was widely patent. The stomach was caref ully inspected. There was mild gastritis present. A biopsy of the antrum took place to rule out H. pylori. The patient had multiple small polyps one of which measured approximately 1 cm in size in the mid body of the stomach. This did not have a frankly neoplastic appearance but a biopsy was taken to evaluate. Retroflexion revealed some irregularity at the GE junction. As the scope was withdrawn and the esophagus the patient had a frankly neoplastic circumferential lesion just at and above the GE junction. There was a protuberant mass encompassing approximately 20% of the circumference that likewise had a malignant appearance. Biopsies of the distal esophageal mass took place. The mid and proximal esophagus otherwise appeared normal. The patient was then taken to the recovery room in stable condition per anesthesia guidelines. Recommendations: Await biopsy results. Follow up with oncology.
[2018-10-25 09:04] VITALS: BP 172/93; PULSE 70; RESP 16
== END 2018-10-25 09:44 | disposition home or self-care (01) ==
LOC: ORWHC2ENDO 07:44
PROVIDERS: ATTEND Surgery
DX: C16.0 Malignant neoplasm of cardia (principal); K29.50 Unspecified chronic gastritis without bleeding; K31.7 Polyp of stomach and duodenum; K22.70 Barrett's esophagus without dysplasia; K21.9 Gastro-esophageal reflux disease without esophagitis; C79.51 Secondary malignant neoplasm of bone; I10 Essential (primary) hypertension; E78.5 Hyperlipidemia, unspecified; G20 Parkinson's disease; F41.0 Panic disorder [episodic paroxysmal anxiety]; F32.9 Major depressive disorder, single episode, unspecified; J30.2 Other seasonal allergic rhinitis; Z87.891 Personal history of nicotine dependence; Z79.899 Other long term (current) drug therapy; Z90.49 Acquired absence of other specified parts of digestive tract; Z98.890 Other specified postprocedural states; Z80.8 Family history of malignant neoplasm of other organs or systems; Z80.0 Family history of malignant neoplasm of digestive organs
CPT/HCPCS: 88305; 88342; 88341; 43239; J2704